=== PATIENT | female | born 1965 | race Caucasian/White ===

== ENCOUNTER → 2017-05-15 | Outpatient (CLI) | payer OTHER ==
--- NOTE | 2017-05-15 16:04 | RAD ---
Left lower extremity arterial duplex ultrasound 05/15/2017 Indication: Left lower extremity pain and bruising Comparison study: None Discussion: Ultrasound evaluation of left lower extremity arteries was performed including color Doppler imaging and spectral analysis. Normal waveforms are seen throughout the left lower extremity. Major arteries of the left lower extremity including the left common femoral, superficial femoral, popliteal, posterior tibial, and anterior tibial arteries appear grossly patent. No focal elevation in velocities suggestive of hemodynamically significant stenosis is appreciated. No other focal sonographic abnormality is appreciated. Impression: No sonographic evidence of hemodynamically significant stenosis involving major arteries of the left lower extremity
== END | disposition home or self-care (01) ==
LOC: US 14:47
PROVIDERS: ATTEND Family Medicine
DX: S80.12XA Contusion of left lower leg, initial encounter (principal); X58.XXXA Exposure to other specified factors, initial encounter; Y93.89 Activity, other specified; Y92.89 Other specified places as the place of occurrence of the external cause; Y99.8 Other external cause status
CPT/HCPCS: 93922

== ENCOUNTER 2017-11-29 10:45 | Emergency (ER) | payer OTHER ==
[2017-11-29] MEDS ORDERED: 0.9 % SODIUM CHLORIDE 10 ML DISP.SYRIN. IV (11:00)
[2017-11-29] MEDS: IV NORMAL SALINE 1000ML BAG 1,000 ML IV (11:08)
[2017-11-29] MEDS: DEXAMETHASONE SOD PHOS 20 MG/5 ML VIAL. IV (11:08)
[2017-11-29] MEDS: ACETAMINOPHEN 500 MG TABLET PO (11:08)
[2017-11-29] MEDS: PROCHLORPERAZINE 10 MG/2 ML VIAL. IV (11:09)
[2017-11-29] MEDS: KETOROLAC 30 MG/ML INJ. IV (11:09)
[2017-11-29] MEDS: diphenhydrAMINE 50 MG/ML VIAL IVP (11:09)
== END 2017-11-29 13:22 | disposition home or self-care (01) ==
LOC: ER 10:45
DX: G43.909 Migraine, unspecified, not intractable, without status migrainosus (principal); Z90.710 Acquired absence of both cervix and uterus; Z79.899 Other long term (current) drug therapy
CPT/HCPCS: 70450; 96361; 96374; 96375; 99285-25; J0780; J1100; J1200; J1885; J7030

== ENCOUNTER → 2018-02-22 | Outpatient (CLI) | payer OTHER | END | disposition home or self-care (01) | LOC: KCIC MRI 07:55 | DX: S46.011A Strain of muscle(s) and tendon(s) of the rotator cuff of right shoulder, initial encounter (principal); X58.XXXA Exposure to other specified factors, initial encounter; Y93.89 Activity, other specified; Y92.89 Other specified places as the place of occurrence of the external cause; Y99.8 Other external cause status | CPT/HCPCS: 73221 ==

== ENCOUNTER → 2018-07-18 | Outpatient (CLI) | payer OTHER ==
[2017-11-29 12:35] VITALS: BP 84/48
[~2018-07-18] MED LIST: ACET325T9 PO; NAPR-683 PO; PROC10TA57 PO
--- NOTE | 2018-07-18 17:25 | RAD ---
Ankle brachial indices HISTORY: Right lower leg lateral pain. No known injury. FINDINGS: Right SUZY equals 1.1 Left SUZY equals 1.1 Triphasic waveforms are identified in the dorsalis pedis arteries bilaterally. IMPRESSION: ABIs are within normal limits. Electronically signed by: Sergey Pavon MD (07/18/2018 5:22 PM) [id number]
--- NOTE | 2018-07-18 17:26 | RAD ---
Right lower extremity venous doppler ultrasound Indication:RT LOWER LEG LAT PAIN, NO KNOWN INJURY Technique: Color Doppler, grayscale, and spectral waveform analysis is used to evaluate the right femoral and popliteal veins. Findings: No evidence of deep venous thrombosis. Normal response to augmentation, normal compressibility and normal phasicity is demonstrated. Visualized calf veins are patent. Impression: Negative for deep venous thrombosis Electronically signed by: Sergey Pavon MD (07/18/2018 5:24 PM) [id number]
== END | disposition home or self-care (01) ==
LOC: US 09:45
PROVIDERS: ATTEND Family Medicine
DX: M79.604 Pain in right leg (principal)
CPT/HCPCS: 93922; 93971

== ENCOUNTER → 2018-07-25 | Outpatient (CLI) | payer OTHER ==
[2017-11-29 12:35] VITALS: BP 84/48
--- NOTE | 2018-07-26 08:26 | RAD ---
DATE: 07/25/2018 EXAM: MAMMO LIBERTDA SCREENING BILATERAL HISTORY: Routine screening COMPARISON: 10/28/2009 This study was interpreted with the benefit of Computerized Aided Detection (CAD). Breast Density: SCATTERED The breast parenchyma shows scattered fibroglandular densities. Breast parenchyma level B. FINDINGS: 2-D and 3-D tomosynthesis imaging was performed in CC and MLO projections. No new or enlarging breast densities are seen. No suspicious microcalcifications are evident. IMPRESSION: There is no mammographic evidence of malignancy in either breast. BI-RADS CATEGORY: 2 BENIGN FINDING(S) RECOMMENDED FOLLOW-UP: 12M 12 MONTH FOLLOW-UP PQRS compliance statement: Patient information was entered into a reminder system with a target due date for the next mammogram. Mammography is a sensitive method for finding small breast cancers, but it does not detect them all and is not a substitute for careful clinical examination. A negative mammogram does not negate a clinically suspicious finding and should not result in delay in biopsying a clinically suspicious abnormality. "Our facility is accredited by the [employer] Mammography Program."
== END | disposition home or self-care (01) ==
LOC: MAMMO 07:41
PROVIDERS: ATTEND Family Medicine
DX: Z12.31 Encounter for screening mammogram for malignant neoplasm of breast (principal)
CPT/HCPCS: 77063; 77067

== ENCOUNTER → 2018-09-27 | Outpatient (CLI) | payer OTHER ==
[2017-11-29 12:35] VITALS: BP 84/48
[~2018-09-27] MED LIST changes: +CONTRAST GIVEN. MC PRN; +GADOBUTROL 7.5 MMOL/7.5 ML VIAL INT ART ONE; +IOHEXOL 300 MG/ML 50 ML VIAL. IJ ONE; +LIDOCAINE 1% Multi-Dose 20 ML VIAL. INJ ONE; +LIDOCAINE WITH 8.4% SOD BICARB 3 ML DISP.SYRIN. INJ ONE
--- NOTE | 2018-09-27 13:16 | RAD ---
MR arthrogram of the left shoulder Indication: Pain, worsening over several months. Technique: Intra-articular contrast injected into the glenohumeral joint and is reported separately. Routine 4 plane sequences were obtained, including ABER positioning. FINDINGS: Artifact: Mild motion degradation. Acromioclavicular joint: Mildly degenerative, small undersurface osteophytes with mass effect. Rotator cuff: * Supraspinatus-infraspinatus tendon: No evidence of tear or rupture. * Subscapularis tendon: Intrasubstance signal likely due to the injection procedure. No high-grade tear or detachment. * Muscle bulk: Mild volume loss. * Subacromial subdeltoid bursa: No significant fluid or contrast accumulation. Articular cartilage: No acute cartilage defect or advanced DJD. Labrum: Tear of the superior labrum. Biceps tendon: Intact Bones: No lesion or acute fracture. Soft tissue: No acute findings. Impression: 1. Superior labral tear. 2. Signal within the subscapularis tendon, likely due to the injection procedure. No definite rotator cuff tear. Electronically signed by: Sergey Pavon MD (09/27/2018 1:12 PM) [id number]
--- NOTE | 2018-09-27 16:31 | RAD ---
EXAM: Left glenohumeral injection WITH Fluoroscopic guidance DATE: 09/27/2018 7:59 AM CLINICAL HISTORY: left shoulder weakness COMPARISON: None pertinent TECHNIQUE: The patient was informed of the indications and alternatives for this procedure as well as risks and benefits. No immediate contraindication identified. The patient provided informed, written consent. Laterality was confirmed by the entire team following a time out. Following initial left shoulder joint localization, a suitable area was sterilely prepped and draped. Local anesthesia was administered with 1% xylocaine. With intermittent fluoroscopic observation, a 22-gauge spinal needle was advanced into the left glenohumeral joint sheath/capsule with confirmation of intra-synovial position with infusion of less than 1 cc iodinated contrast. Subsequent infusion of 12 cc of solution containing 10 cc saline, 5 cc lidocaine 1%, 5 cc Isovue and 0.1 cc gadolinium . Hemostasis with local pressure. Local clinical exam negative for immediate complication. Patient informed re local potential signs or symptoms that may indicate need to return to ER/Ordering physician for further evaluation. Patient informed re precautionary measures after intra-synovial injection of anesthetic. Patient expressed understanding. Performing Physicians: Dr. Osiris Bose Blood Loss: 0 cc Total Fluoroscopy time: 0.2 minutes Total spot images taken: 0 Total number of fluoroscopic screen save images: 2 IMPRESSION: Successful intra-synovial injection left glenohumeral [id number] arthrogram per clinical request. Electronically signed by: Hermilo Bose MD (09/27/2018 4:27 PM) [facility]
== END | disposition home or self-care (01) ==
LOC: RAD 07:44
PROVIDERS: ATTEND Family Medicine
DX: S43.492A Other sprain of left shoulder joint, initial encounter (principal); X58.XXXA Exposure to other specified factors, initial encounter; Y93.89 Activity, other specified; Y92.89 Other specified places as the place of occurrence of the external cause; Y99.8 Other external cause status
CPT/HCPCS: 23350; 73040; 73222; A9585; Q9967

== ENCOUNTER → 2018-10-11 | Day surgery (SDC) | payer OTHER ==
[~2018-10-11] MED LIST changes: -CONTRAST GIVEN. MC PRN; +DOCU-109 PO; -GADOBUTROL 7.5 MMOL/7.5 ML VIAL INT ART ONE; +HYDROmorphone 2 MG/ML VIAL IV PRN; -IOHEXOL 300 MG/ML 50 ML VIAL. IJ ONE; +IV RINGERS,LACTATED 1000ML 1,000 ML IV SCH; -LIDOCAINE 1% Multi-Dose 20 ML VIAL. INJ ONE; +LIDOCAINE 1% PF 2 ML VIAL. ID PRN; -LIDOCAINE WITH 8.4% SOD BICARB 3 ML DISP.SYRIN. INJ ONE; +MORPHINE SULFATE 4 MG/ML VIAL. IV PRN; +OMEP20TA8 PO; +ONDA8TAB9 PO; +ONDANSETRON PF 4 MG/2 ML VIAL. IV PRN; +OXYC1TAB15 PO; +PROCHLORPERAZINE 10 MG/2 ML VIAL. IV PRN; +PROG200C10 PO; +PROPOFOL 40 ML IV ONE; +TOPI100T42 PO; +fentaNYL PF VIAL 100 MCG/2 ML VIAL IV PRN
[2018-10-11 09:29] VITALS: BP 122/63
--- NOTE | 2018-10-11 10:38 | CONS ---
DATE OF CONSULTATION: 10/11/2018 REFERRING PHYSICIAN: Chanell Murray MD. REASON: Colorectal screening. HISTORY OF PRESENT ILLNESS: A 53-year-old female with past medical history significant for osteoarthrosis, gastroesophageal reflux disease, seen for a screening colon exam. Bowel habits are regular without diarrhea or constipation. There has been no melena or hematochezia. Weight and appetite are stable. She has not undergone previous screening studies. PAST MEDICAL HISTORY: GERD, osteoarthritis. ALLERGIES: None. MEDICATIONS: Include Tylenol, Naprosyn, omeprazole, progesterone and Topamax. FAMILY AND SOCIAL HISTORY: Significant for diabetes with her grandmother, pancreatic cancer with grandfather, myocardial infarction with her father. Social drinker, nonsmoker. PAST SURGICAL HISTORY: Hysterectomy and tonsillectomy. REVIEW OF SYSTEMS: Per records. PHYSICAL EXAMINATION: GENERAL: Reveals a well-nourished, well-developed female. VITAL SIGNS: Temperature is 98.1, pulse 78, respirations 20. HEENT: Normocephalic and atraumatic. Pupils and extraocular muscles not tested. Sclerae anicteric. NECK: Supple. LUNGS: Clear. CARDIOVASCULAR: Reveals an S1, S2 without S3, S4 or appreciable murmur. ABDOMEN: Reveals soft abdomen, normal bowel sounds without appreciable hepatosplenomegaly. EXTREMITIES: Reveal no cyanosis, clubbing or edema. IMPRESSION: Colorectal screening was recommended at this time. Risks and benefits of procedure including risk of hemorrhage and perforation during the operation have been discussed. The patient is willing to proceed. KORINA REYES MD DR: FRANDY/joy JOB#: [id number] / [id number] [facility] RECORDS, MEDICAL
== END | disposition home or self-care (01) ==
LOC: SURG 07:52
PROVIDERS: ATTEND Internal Medicine Gastroenterology
DX: Z12.11 Encounter for screening for malignant neoplasm of colon (principal); K64.0 First degree hemorrhoids; K21.9 Gastro-esophageal reflux disease without esophagitis; G43.909 Migraine, unspecified, not intractable, without status migrainosus; M19.90 Unspecified osteoarthritis, unspecified site; Z79.899 Other long term (current) drug therapy; Z72.89 Other problems related to lifestyle; Z90.710 Acquired absence of both cervix and uterus; Z98.890 Other specified postprocedural states; Z82.49 Family history of ischemic heart disease and other diseases of the circulatory system; G89.29 Other chronic pain
CPT/HCPCS: 45378; J2704

== ENCOUNTER 2018-10-16 07:54 | Day surgery (SDC) | payer OTHER ==
[~2018-10-16] VITALS: Ht 170.2 cm; Wt 83.9 kg
[~2018-10-16 07:54] MED LIST changes: +DEXAMETHASONE SOD PHOS 20 MG/5 ML VIAL. ONE; -DOCU-109 PO; +LIDOCAINE 2% PF Vial for OR 5 ML VIAL. ONE; +MORPHINE SULFATE 2 MG/ML VIAL. IV PRN; -MORPHINE SULFATE 4 MG/ML VIAL. IV PRN; -ONDA8TAB9 PO; -OXYC1TAB15 PO; -PROG200C10 PO; +PROG200C2 PO; +PROPOFOL 20 ML IV ONE; -PROPOFOL 40 ML IV ONE
--- NOTE | 2018-10-16 08:40 | DISCH ---
DISCHARGE INSTRUCTIONS Condition on Discharge Condition on Discharge: Stable Activity After Discharge Activity Instructions for Disc: Other, see below Other activity instructions: arm to remain in sling Bathing Instructions: Shower-keep dressing dry Weight Bearing Status after Di: Non weight bearing Diet after Discharge Diet after Discharge: Regular Wound Incision Care Wound/Incision Care: Ice to area for comfort, Keep wound/cast CDI, Change dressing Other wound/incision instructi: ok to change dressing after [address] after DC Call your doctor for: Concerns you may have Follow-Up Follow up with: Carlos in 2 wks DARCY ALEJANDRA II, MD Oct 16, 2018 08:39
[2018-10-16] MEDS ORDERED: BUPIVACAINE MPF 0.25% 10 ML VIAL. ONE (10:23)
[2018-10-16] MEDS ORDERED: MIDAZOLAM HCL/PF 2 MG/2 ML VIAL. ONE (10:23)
[2018-10-16] MEDS ORDERED: LIDOCAINE 2% PF 2ML VIAL. ONE (10:23)
[2018-10-16] MEDS ORDERED: ROPIVacaine 0.5% PF 20 ML VIAL. ONE (10:23)
[2018-10-16] MEDS ORDERED: EPINEPHrine 1 MG/ML VIAL ONE (10:23)
[2018-10-16] MEDS ORDERED: LIDOCAINE 1% 20 ML VIAL. ONE (10:30)
[2018-10-16] MEDS ORDERED: BUPIVACAINE MPF 0.5% 30 ML VIAL. ONE (10:31)
[2018-10-16] MEDS ORDERED: EPINEPHrine VIAL 30 MG/30 ML VIAL ONE (10:31)
[2018-10-16] MEDS ORDERED: fentaNYL PF VIAL 100 MCG/2 ML VIAL ONE (11:09)
[2018-10-16] MEDS ORDERED: ROCURONIUM 50 MG/5 ML VIAL. ONE (11:09)
[2018-10-16] MEDS ORDERED: GLYCOPYRROLATE 1 MG/5 ML VIAL. ONE (12:16)
[2018-10-16] MEDS ORDERED: NEOSTIGMINE 10 MG/10 ML VIAL. ONE (12:16)
--- NOTE | 2018-10-16 12:54 | PDOC4 ---
Operative Note Operative Note Date of procedure: 10/16/2018 Surgeon: Mark Alejandra Interviewing Clerk: Aida Mancuso, certified tower climber Preoperative diagnosis: Right shoulder rotator cuff tear Postoperative diagnosis: #1 right shoulder rotator cuff tear, supraspinatus #2 superior labral tear right shoulder Procedure performed: #1 arthroscopic right shoulder rotator cuff repair #2 arthroscopic superior labral repair of right shoulder #3 open subpectoral biceps tenodesis on right side Anesthesia: Gen. plus regional nerve block Findings: #1 intact cartilage at the glenoid and humeral head #2 biceps tendon without obvious pathology #3 superior labral tear #4 remainder of labrum intact #5 high-grade partial thickness tear at supraspinatus #6 remainder rotator cuff intact #7 no loose bodies Blood loss: 10 mL Components inserted: 1.9 mm suture fix anchor for biceps tenodesis, 2 1.7 mm suture fix anchors for labral fixation, helacoil suture anchor for rotator cuff Reason for procedure: Patient is a very pleasant and active woman who has had chronic shoulder pain. Clinical and radiographic examination including MRI were consistent with the preoperative diagnosis. She has tried physical therapy for several months as well as injections which only afforded her temporary relief. Because of her symptoms and dysfunction, we had a discussion of the risks, benefits, alternatives the above surgery and she wished to proceed. Description of procedure: Patient was greeted in the preoperative holding area where the correct extremity was verified and marked. There were taken to the preoperative holding area where the anesthesiology team placed a regional nerve block. The patient was then taken back to the operative suite and antibiotics were started as they were brought back. Once in the operative room, the patient was transferred gently supine to the operating room table after successful induction of a general anesthetic. After this, she was sat up in a beachchair position maintaining her C-spine in neutral position, large pad under her legs, she was secured to the bed. We then prepped and draped in her upper extremity and shoulder girdle in our usual sterile fashion, we conducted our standard preoperative timeout. I palpated and marked surface anatomy for my planned portal sites. I then used a spinal needle to localize a posterior superior portal and incised skin in accordance with this. After this, I introduce the blunt arthroscopic trocar into the glenohumeral joint ball by the camera. I used a spinal needle to localize an anterosuperior portal and incised skin in accordance with this. I introduced my arthroscopic probe and conducted my diagnostic arthroscopy with the above-noted findings. I then elected to create an anteroinferior portal under spinal localization for suture management. After this, I removed all arthroscopic instrumentation. I then palpated and marked her surface anatomy for my subpectoral incision. I incised skin with a scalpel and dissected subcutaneous tissue until I encountered fascia I bluntly dissected underneath the pectoralis major and deltoid. I palpated and identified the biceps tendon. After this, I placed a 90 retractor over the top of her humerus. An [place] was used inferiorly. I identified an isolated biceps tendon and clamped it with a hemostat. Distal to this along the course of the tendon, I placed my large suture fix anchor and shuttled these 2 limbs through in a lasso configuration using a [place]. I then tied them down securely. I then used a scalpel to cut the tendon between the hemostat and suture knots. After this, I repositioned the arm and introduced my camera into the glenohumeral joint again. I then used the shaver to debride the superior glenoid in anticipation of my suture anchor placement and labral repair. I then placed the 2 suture fix anchors, 100 time and shuttled the limbs through in a simple configuration with a spectrum and tied it down with arthroscopic knot- tying techniques. The suture limbs were cut. After placing my second one, I tested the repair integrity, it was solid. I then released the biceps tendon and withdrew it from the subpectoral incision easily. I then removed a small remaining portion of the biceps stump with the shaver. I then performed repeated aspiration maneuvers with my shaver while in the glenohumeral joint to remove any loose debris. I then passed a PDS suture through with a spinal needle , at the frayed edge of the supra spinatus. I then removed all arthroscopic interpretation from the glenohumeral joint and repositioned in the subacromial space. His combination of shaver and electrocautery device to perform a bursectomy. Identified the PDS suture and was easily able to violate the substance of the tendon with the shaver tip. I therefore took down the pathologic tendon and prepared my footprint. After removing all damaged tissue, he created a full-thickness defect. I then used a switching stick through a lateral portal I created to place a cannula to work through. I then placed my suture anchor. After this, shuttled the suture limbs through the anterosuperior portal for suture management. I then shuttled them in a simple configuration through the rotator cuff tendon and tied them down with arthroscopic knot-tying techniques for a secure repair. No motion was noted at the bone tendon interface with motion at her arm. The repair was stable to probing. I then removed all excess arthroscopic fluid and the arthroscopic interpretation from her subacromial space. The portals were closed with simple interrupted 3-0 nylon. Subcutaneous cutaneous tissue was closed with inverted interrupted 2-0 Vicryl at the subpectoral incision followed by running 4-0 Monocryl in a buried subcuticular fashion. The shoulder with close cleansed and dried and a sterile bulky dressing was applied. Her arm was then placed into an abduction pillow sling. All counts correct 2 prior to wound closure. No complications. At the conclusion, she was laid supine and transferred gently supine to the recovery room cart and taken to the PACU stable and extubated condition. Postoperative plan is to remain in the sling, shell be nonweightbearing. Ill see her back in 2 weeks, sooner should a problem arise. She will be discharged home today. MARK ALEJANDRA II, MD Oct 16, 2018 12:54
[2018-10-16] MEDS: fentaNYL PF VIAL 100 MCG/2 ML VIAL IV PRN ×2 (13:06→13:16)
[2018-10-16] MEDS ORDERED: OXYC1TAB15 PO (13:13)
[2018-10-16] MEDS ORDERED: DOCU-109 PO (13:14)
[2018-10-16] MEDS ORDERED: ONDA8TAB9 PO (13:14)
[2018-10-16] MEDS ORDERED: oxyCODONE/APAP 5/325 1 TAB TABLET PO ONE (13:15)
[2018-10-16] MEDS ORDERED: MORPHINE SULFATE 4 MG/ML VIAL. ONE (13:36)
[2018-10-16 14:37] VITALS: BP 121/64
== END 2018-10-16 14:37 | disposition home or self-care (01) ==
LOC: SURG 07:54
PROVIDERS: ATTEND Orthopaedic Surgery Sports Medicine
DX: M75.111 Incomplete rotator cuff tear or rupture of right shoulder, not specified as traumatic (principal); E78.5 Hyperlipidemia, unspecified; E78.00 Pure hypercholesterolemia, unspecified; K21.9 Gastro-esophageal reflux disease without esophagitis; G43.909 Migraine, unspecified, not intractable, without status migrainosus; Z98.890 Other specified postprocedural states; Z90.710 Acquired absence of both cervix and uterus; Z79.899 Other long term (current) drug therapy; Z82.49 Family history of ischemic heart disease and other diseases of the circulatory system; Z87.891 Personal history of nicotine dependence
CPT/HCPCS: 23430; 29807; 29827; A7015; C1782; J0171; J0696; J0780; J1100; J2001; J2250; J2270; J2704; J2710; J2795; J3010; J3490

== ENCOUNTER 2018-12-23 07:48 | Day surgery (SDC) | payer OTHER ==
[~2018-12-23 07:48] MED LIST changes: +BUPIVAC MPF-EPI 0.5%-1:200000 30 ML VIAL. ONE; +BUPIVACAINE MPF 0.5% 30 ML VIAL. ONE; -DEXAMETHASONE SOD PHOS 20 MG/5 ML VIAL. ONE; +DOCU-109 PO; +LIDOCAINE 1% PF 2 ML VIAL. ONE; -LIDOCAINE 2% PF Vial for OR 5 ML VIAL. ONE; +ONDA8TAB9 PO; +OXYC1TAB15 PO; -PROPOFOL 20 ML IV ONE
[2018-12-23] MEDS ORDERED: MIDAZOLAM HCL/PF 2 MG/2 ML VIAL. ONE (08:38)
--- NOTE | 2018-12-23 08:47 | DISCH ---
DISCHARGE INSTRUCTIONS Condition on Discharge Condition on Discharge: Stable Activity After Discharge Activity Instructions for Disc: Activity as tolerated, Other, see below Bathing Instructions: Shower-keep dressing dry Weight Bearing Status after Di: As tolerated, Non weight bearing Diet after Discharge Diet after Discharge: Regular Wound Incision Care Wound/Incision Care: Ice to area for comfort, Keep wound/cast CDI, Change dressing Contacting the DRPolina after DC Call your doctor for: Concerns you may have Follow-Up Follow up with: Carlos in 2 wks Follow Up With: PT this DARCY Velázquez II, MD Dec 23, 2018 08:47
--- NOTE | 2018-12-23 09:22 | PDOC4 ---
Operative Note Operative Note Date of Procedure: 12/23/18 Surgeon: Mark Alejandra Pre-operative Diagnosis: Right shoulder postoperative arthrofibrosis Postoperative diagnosis: Same Procedure performed: Right shoulder manipulation under anesthesia Anesthesia: Regional nerve block with propofol for sedation monitored by anesthesiologist. Blood loss: 0 Complications: Findings: Preprocedure forward elevation was to 80, external rotation was to 10 , abduction was to 70 Reason for procedure: Patient is a pleasant 53-year-old female who underwent right shoulder arthroscopic rotator cuff repair with myself several weeks ago. She had plateaued and failed to gain any motion with physical therapy and felt her shoulder was becoming more stiff. Therefore, we had a discussion of the risks, benefits, and alternatives to the above procedure and she wished to proceed. Description of procedure: Patient was greeted in the preoperative area by myself for the correct extremity was verified and marked. She underwent placement of a regional nerve block by the anesthesiologist. After allowing the block to set up, propofol sedation was begun and after adequate relaxation, I conducted my examination under anesthesia with the above-noted findings. I then performed my close manipulation of her shoulder in forward elevation and external rotation using a short lever arm, I perform this maneuver 3 times. A gratifying release and audible release of scar tissue was appreciated. After the manipulation, forward elevation was to 150 or 160, external rotation was to 30 and abduction was to 90. She tolerated this well. She was awakened from her sedation. Placed into a sling. She'll be discharged home today, she has physical therapy starting tomorrow. MARK ALEJANDRA II, MD Dec 23, 2018 09:22
[2018-12-23 10:30] VITALS: BP 107/58
== END 2018-12-23 10:41 | disposition home or self-care (01) ==
LOC: SURG 07:48
PROVIDERS: ATTEND Orthopaedic Surgery Sports Medicine
DX: M24.611 Ankylosis, right shoulder (principal); Z90.710 Acquired absence of both cervix and uterus; Z98.890 Other specified postprocedural states; Z82.49 Family history of ischemic heart disease and other diseases of the circulatory system; Z87.891 Personal history of nicotine dependence; Z72.89 Other problems related to lifestyle; Z79.899 Other long term (current) drug therapy
CPT/HCPCS: 23700; J2250; J3010; J3490

== ENCOUNTER → 2019-04-04 | Outpatient (CLI) | payer OTHER ==
[~2019-04-04] MED LIST changes: -BUPIVAC MPF-EPI 0.5%-1:200000 30 ML VIAL. ONE; -BUPIVACAINE MPF 0.5% 30 ML VIAL. ONE; -HYDROmorphone 2 MG/ML VIAL IV PRN; -IV RINGERS,LACTATED 1000ML 1,000 ML IV SCH; -LIDOCAINE 1% PF 2 ML VIAL. ID PRN; -LIDOCAINE 1% PF 2 ML VIAL. ONE; -MORPHINE SULFATE 2 MG/ML VIAL. IV PRN; -ONDANSETRON PF 4 MG/2 ML VIAL. IV PRN; -PROCHLORPERAZINE 10 MG/2 ML VIAL. IV PRN; -fentaNYL PF VIAL 100 MCG/2 ML VIAL IV PRN
--- NOTE | 2019-04-04 13:49 | CARD ---
MR#: [id number] Date of Study: 04/04/2019 Ordering Physician: ANTONIO WILSON, Referring Physician: ANTONIO WILSON, Tech: Katie Minor MANAS APPROVED REPORT EXAM: Two-dimensional and M-mode echocardiogram with Doppler and color Doppler. Other Information Quality : Good INDICATION Chest Pain 2D DIMENSIONS RVDd2.3 (2.9-3.5cm)Left Atrium(2D)2.9 (1.6-4.0cm) IVSd0.7 (0.7-1.1cm)Aortic Root(2D)2.2 (2.0-3.7cm) LVDd3.9 (3.9-5.9cm)LVOT Diameter2.0 (1.8-2.4cm) PWd0.7 (0.7-1.1cm)LVDs3.0 (2.5-4.0cm) FS (%) 12.9 %SV18.6 ml LVEF(%)55.0 (>50%) Aortic Valve AoV Peak Agustin.112.4cm/sAoV VTI25.3cm AO Peak GR.5.1mmHgLVOT Peak Agustin.111.7cm/s LVOT VTI 25.50cmAO Mean GR.3mmHg ISSA (VMAX)3.12mq6DKM (VTI)3.06cm2 Mitral Valve MV E Ihmoijnp27.0cm/sMV DECEL AEFR783xf MV A Ypkfpuyf82.4cm/sMV KNH93pa E/A Ratio1.8MVA (PHT)4.43cm2 TDI E/Lateral E'5.9E/Medial E'8.4 Tricuspid Valve TR P. Vfqdruqu883bn/sRAP QICPSMEA6dgSb TR Peak Gr.36kqVcVUMK80tuFl Pulmonary Vein S1 Qqnzgnqf54.5cm/sD2 Juvbuspc42.3cm/s LEFT VENTRICLE The left ventricle is normal size. There is normal left ventricular wall thickness. The left ventricu lar systolic function is normal and the ejection fraction is within normal range. The Ejection Fracti on is 55-60%. There is normal LV segmental wall motion. The left ventricular diastolic function and f illing is normal for age. RIGHT VENTRICLE The right ventricle is normal size. The right ventricular systolic function is normal. ATRIA The left atrium size is normal. The right atrium size is normal. The interatrial septum is intact wit h no evidence for an atrial septal defect or patent foramen ovale as noted on 2-D or Doppler imaging. AORTIC VALVE The aortic valve is normal in structure and function. Doppler and Color Flow revealed no significant aortic regurgitation. There is no significant aortic valvular stenosis. MITRAL VALVE The mitral valve is normal in structure and function. There is no evidence of mitral valve prolapse. There is no mitral valve stenosis. Doppler and Color-flow revealed trace mitral regurgitation. TRICUSPID VALVE The tricuspid valve is normal in structure and function. Doppler and Color Flow revealed physiologica l tricuspid regurgitation. The PA pressure was estimated at 18 mmHg. There is no tricuspid valve sten osis. PULMONIC VALVE Doppler and Color Flow revealed no pulmonic valvular regurgitation. There is no pulmonic valvular yusuf nosis. GREAT VESSELS The aortic root is normal in size. The ascending aorta is normal in size. The IVC is normal in size a nd collapses >50% with inspiration. PERICARDIAL EFFUSION There is no evidence of significant pericardial effusion. Critical Notification Critical Value: No <Conclusion> The left ventricular systolic function is normal and the ejection fraction is within normal range. Th e Ejection Fraction is 55-60%. There is normal LV segmental wall motion. Signed by : Antonio Wilson, Electronically Approved : 04/04/2019 13:49:09
[2019-04-04 15:34] LABS: CHOLESTEROL/HDL RATIO 3.8
== END | disposition home or self-care (01) ==
LOC: ECHO 12:25
PROVIDERS: ATTEND Internal Medicine Cardiovascular Disease
DX: I07.1 Rheumatic tricuspid insufficiency (principal)
CPT/HCPCS: 36415; 80061; 83721; 84484; 93306

== ENCOUNTER 2019-06-11 21:35 | Emergency (ER) | payer OTHER ==
[~2019-06-11] VITALS: Ht 172.7 cm; Wt 83.0 kg
[~2019-06-11 21:35] MED LIST changes: +PROG200C10 PO; -PROG200C2 PO
--- NOTE | 2019-06-11 21:55 | PHYS DOC ---
Past Medical History Past Medical History: Migraines (PACHECO TOMLIN) Past Surgical History: Hysterectomy, Other Additional Past Surgical Histo: KNEE SX, JAW SX (PACHECO TOMLIN) Alcohol Use: None Drug Use: None (PACHECO TOMLIN) Adult General Chief Complaint Chief Complaint: WRIST PAIN HPI HPI Patient is a 54 year old female presents to the ED complaining of right wrist injury times one hour ago. Patient states that she was wearing heels in the house and slipped in water and landed on her right wrist. Describes the pain as sharp. Rates the pain as 7 out of 10. Denies head/neck injury, LOC, vision changes, weakness, symptoms prior to fall, use of blood thinners, chest pain, shortness of breath, arm pain, weakness, dizziness. (PACHECO TOMLIN) Review of Systems Review of Systems Constitutional: Denies fever or chills [] Eyes: Denies change in visual acuity, redness, or eye pain [] HENT: Denies nasal congestion or sore throat [] Respiratory: Denies cough or shortness of breath [] Cardiovascular: No additional information not addressed in HPI [] GI: Denies abdominal pain, nausea, vomiting, bloody stools or diarrhea [] : Denies dysuria or hematuria [] Musculoskeletal:Complains of wrist pain. Denies back pain. [] Integument: Denies rash or skin lesions [] Neurologic: Denies headache, focal weakness or sensory changes [] All other systems were reviewed and found to be within normal limits, except as documented in this note. (PACHECO TOMLIN) Current Medications Current Medications Current Medications Medications (Trade) Dose Ordered Sig/[facility] Start Time Stop Time Status Last Admin Dose Admin Acetaminophen/ Hydrocodone Bitart (Lortab 5/325) 1 tab 1X ONCE 06/12/19 01:00 06/12/19 01:01 DC 06/12/19 01:11 1 TAB Etomidate (Amidate) 10 mg 1X ONCE 06/11/19 22:15 06/11/19 22:26 DC 06/12/19 01:11 10 MG Fentanyl Citrate (Fentanyl 2ml Vial) 100 mcg 1X ONCE 06/11/19 22:30 06/11/19 22:31 DC 06/12/19 01:11 100 MCG Ondansetron HCl (Zofran) 4 mg 1X ONCE 06/12/19 00:30 06/12/19 00:34 DC 06/12/19 00:54 4 MG Sodium Chloride 1,000 ml @ 1,000 mls/hr 1X ONCE 06/11/19 22:15 06/11/19 23:14 DC 06/12/19 01:11 1,000 MLS/HR (GRUPO MEJIA DO) Allergies Allergies Allergies Coded Allergies Type Severity Reaction Last Updated Verified No Known Drug Allergies 12/18/18 No (GRUPO MEJIA DO) Physical Exam Physical Exam Constitutional: Well developed, well nourished, no acute distress, non-toxic appearance. [] HENT: Normocephalic, atraumatic [] Skin: Warm, dry, no erythema, no rash. [] Back: No tenderness, no CVA tenderness. [] Extremities: Moderate right wrist tenderness and swelling with deformity. no cyanosis, no clubbing, no edema. 2+ distal pulses.[] Neurologic: Alert and oriented X 3, normal motor function, normal sensory function, no focal deficits noted. [] Psychologic: Affect normal, judgement normal, mood normal. [] (PACHECO TOMLIN) Physical Exam Constitutional: Well developed, well nourished, uncomfortable, in pain, non- toxic appearance HENT: Normocephalic, atraumatic, oropharynx moist, normal anatomy Eyes: Conjunctiva normal, no discharge Neck: Normal range of motion, no tenderness, supple Cardiovascular: Heart rate normal, regular rhythm Lungs & Thorax: Bilateral breath sounds clear to auscultation, no wheezing Skin: Warm, dry, no erythema, no rash Extremities: Obvious deformity of right wrist, Radial pulse +2 Neurologic: Alert and oriented X 3, normal motor function, normal sensory function, no focal deficits noted Psychologic: Affect normal, judgement normal (GRUPO MEJIA DO) Current Patient Data Vital Signs Vital Signs Date Time Temp Pulse Resp B/P (MAP) Pulse Ox O2 Delivery O2 Flow Rate FiO2 06/12/19 01:11 18 99 Room Air 06/11/19 21:45 98.4 82 120/57 (78) 98.4 (GRUPO MEJIA DO) EKG EKG [] (PACHECO TOMLIN) Radiology/Procedures Radiology/Procedures []Distal radius fracture. Film read by Dr. Mejia. (PACHECO TOMLIN) Radiology/Procedures Right wrist 3V (preliminary interpretation by ED physician): Distal radius and ulna fractures Right forearm 2V (preliminary interpretation by ED physician): Improved alignment of fracture/dislocation (GRUPO MEJIA DO) Course & Med Decision Making Course & Med Decision Making Pertinent Labs and Imaging studies reviewed. (See chart for details) []Patient had distal radius fracture on XR. Reduction performed by Dr. Mejia under conscious sedation. Postreduction film taken. Reduction successful. No complications. See Dr. Mejia note for procedure. Patient placed in splint. NV intact post placement. Patient to follow up with orthopedics this week. Provided contact information/education. Discussed reasons to return to the ED. Patient is understands and agrees with plan. (PACHECO TOMLIN) Course & Med Decision Making Patient with distal wrist fracture s/p fall. Moderate sedation with manipulation of wrist performed by myself with interval improved alignment. Splint applied. Repeat XR confirmed improved alignment. Patient stable for discharge with outpatient follow-up with PCP/orthopedics. Orthopedic referral provided. Discussed findings and plan with patient and family, who acknowledge understanding and agreement. (GRUPO MEJIA DO) Dragon Disclaimer Dragon Disclaimer This electronic medical record was generated, in whole or in part, using a voice recognition dictation system. (PACHECO TOMLIN) Splinting Splinting : Location: Right wrist Hand-Made Type: orthoglass Splint: sugar-tong Pre-Proc Neuro Vasc Exam: normal Post-Proc Neuro Vasc Exam: normal, unchanged from pre-exam (GRUPO MEJIA DO) Additional Procedures Progress Moderate sedation with fracture reduction: Written consent obtained. Time out performed. Hand hygiene utilized. Cardiac, pulse oximetry, and ETCO2 monitors applied. Supplemental O2 provided at 2L NC. IVF bolus initiated. Sedation achieved with 100mcg of Fentanyl and 10mg of Etomidate (Etomidate pushed by myself). Manipulation performed to right wrist with improved alignment of fracture. Splint applied. Patient more alert during splint application and complains of pain. Additional 50mcg of Fentanyl provided. Patient tolerated procedure well and without difficulty. Sling applied after repeat XR. (GRUPO MEJIA DO) Departure Departure Impression: Primary Impression: Wrist fracture Disposition: 01 HOME, SELF-CARE Condition: IMPROVED Referrals: GRUPO CORCORAN MD (PCP) RAHUL FREGOSO MD Patient Instructions: Sedation or General Anesthesia, Adult, Care After, Sedation, Moderate, Adult, Wrist Fracture Scripts Ondansetron Hcl (ZOFRAN) 4 Mg Tablet 1 TAB PO Q6HRS, #20 TAB Prov: PACHECO TOMLIN 06/12/19 Hydrocodone/Apap 5-325 (NORCO 5-325 TABLET) 1 Each Tablet 1 TAB PO BID for 6 Days, #12 TAB Prov: PACHECO TOMLIN 06/12/19 MODERATE SEDATION ASSESSMENT* RISKS/ALTERNATIVES Risks/Alternatives Risks and alternatives of this type of sedation and procedure discussed with: RISK/ALTERNATIVES: Patient (GRUPO MEJIA DO) H & P ON CHART H & P H & P on chart and reviewed for co-morbid conditions and appropriate labs. H&P ON CHART: Yes (GRUPO MEJIA DO) STATUS PREG STATUS ASSESSED: N/A (GRUPO MEJIA DO) MEDS/ALLERGIES REVIEWED Meds/Allergies Reviewed Medications and Allergies including time and route of recently administered narcotics and sedatives. MEDS/ALLERGIES REVIEWED: Yes (GRUPO MEJIA DO) ASA RATING ASA RATING: I (GRUPO MEJIA DO) AIRWAY ASSESSMENT Airway Assessment Airway patency, oral function limitations, presence of caps, crowns, dentures, partials, and ability to extend neck assessed. AIRWAY ASSESSMENT: Yes (GRUPO MEJIA DO) MALLAMPATI SCORE MALLAMPATI SCORE: II (GRUPO MEJIA DO) PRE-SEDATION ASSESSMENT PRE-SEDATION ASSESSMENT: Yes (GRUPO MEJIA DO) Attending Signature Attending Signature I have personally interviewed and examined the patient. All charts, labs, and imaging studies were reviewed. I agree with the PA/FAGOT HEATER's findings, exam, and plan. (GRUPO MEJIA DO) PACHECO TOMLIN Jun 11, 2019 21:55 GRUPO MEJIA DO Jun 12, 2019 02:09
[2019-06-11] MEDS ORDERED: ETOMIDATE 20 MG/10 ML VIAL. IV ONE (22:15)
[2019-06-11] MEDS ORDERED: IV NORMAL SALINE 1000ML BAG 1,000 ML IV ONE (22:15)
[2019-06-11] MEDS ORDERED: fentaNYL PF VIAL 100 MCG/2 ML VIAL IV ONE (22:30)
[2019-06-11 23:25] VITALS: BP 141/64
[2019-06-12] MEDS ORDERED: HYDR-3164 PO (00:17)
[2019-06-12] MEDS ORDERED: ONDA4TAB7 PO (00:18)
[2019-06-12] MEDS ORDERED: ONDANSETRON PF 4 MG/2 ML VIAL. IV ONE (00:30)
[2019-06-12] MEDS ORDERED: HYDROcodone/APAP 5/325MG 1 TAB TABLET PO ONE (01:00)
--- NOTE | 2019-06-12 02:49 | RAD ---
Right forearm AP lateral x-rays HISTORY: Right forearm injury. COMPARISON: Chest x-ray June 11, 2019. FINDINGS: Since prior wrist x-rays there has been splinting and closed reduction of the distal radius fracture with improved alignment of the fracture fragments with mild persistent cortical distraction of the metaphysis. Irregularity likely representing intra-articular extension of fracture of the dorsal radius on the lateral film noted. Ulna intact. No dislocation. IMPRESSION: Closed reduction of the distal radius fracture with improved alignment as described above. Electronically signed by: Raf Pink MD (06/12/2019 2:47 AM) [id number]
--- NOTE | 2019-06-12 08:17 | RAD ---
EXAM: 3 views right wrist DATE: 06/11/2019 9:29 PM INDICATION: Right wrist pain, injury COMPARISON: No Prior FINDINGS/ IMPRESSION: 1. PA, oblique and lateral views of the right wrist demonstrate a comminuted fracture of the distal radius with intra-articular extension. Corolla dorsal angulation with flattening of the inclination angle. Resultant ulnar positive variance. Moderate associated soft tissue swelling is seen. 2. Degenerative changes thumb CMC. Electronically signed by: Hermilo Bsoe MD (06/12/2019 8:14 AM) [facility]
== END 2019-06-12 00:40 | disposition home or self-care (01) ==
LOC: ER 21:35
DX: S52.571A Other intraarticular fracture of lower end of right radius, initial encounter for closed fracture (principal); G43.909 Migraine, unspecified, not intractable, without status migrainosus; Z90.710 Acquired absence of both cervix and uterus; W01.0XXA Fall on same level from slipping, tripping and stumbling without subsequent striking against object, initial encounter; Y93.89 Activity, other specified; Y92.000 Kitchen of unspecified non-institutional (private) residence as the place of occurrence of the external cause; Y99.8 Other external cause status
CPT/HCPCS: 25605; 73090; 73110; 96374; 99285; J2405; J3010; J7030

== ENCOUNTER 2019-06-18 06:08 | Day surgery (SDC) | payer OTHER ==
[~2019-06-18] VITALS: Ht 172.7 cm; Wt 83.0 kg
[~2019-06-18 06:08] MED LIST changes: +HYDR-2761 PO; +HYDR-3164 PO; +ONDA4TAB7 PO
[2019-06-18] MEDS ORDERED: PROPOFOL 20 ML IV ONE (06:25)
[2019-06-18] MEDS ORDERED: ONDANSETRON PF 4 MG/2 ML VIAL. ONE (06:26)
[2019-06-18] MEDS ORDERED: LIDOCAINE 2% PF 5 ML VIAL. ONE (06:26)
[2019-06-18] MEDS ORDERED: fentaNYL PF VIAL 100 MCG/2 ML VIAL ONE (06:26)
[2019-06-18] MEDS ORDERED: DEXAMETHASONE SOD PHOS 4 MG/ML VIAL ONE ×2 (06:26→07:28)
[2019-06-18] MEDS ORDERED: BUPIVACAINE MPF 0.5% 30 ML VIAL. ONE (06:55)
[2019-06-18] MEDS ORDERED: LIDOCAINE 1% PF 30 ML VIAL. ONE (06:55)
[2019-06-18] MEDS ORDERED: fentaNYL PF VIAL 100 MCG/2 ML VIAL IV PRN (07:00)
[2019-06-18] MEDS ORDERED: ONDANSETRON PF 4 MG/2 ML VIAL. IV PRN (07:00)
[2019-06-18] MEDS ORDERED: HYDROmorphone 2 MG/ML VIAL IV PRN (07:00)
[2019-06-18] MEDS ORDERED: PROCHLORPERAZINE 10 MG/2 ML VIAL. IV PRN (07:00)
[2019-06-18] MEDS ORDERED: IV RINGERS,LACTATED 1000ML 1,000 ML IV SCH (07:00)
[2019-06-18] MEDS ORDERED: LIDOCAINE 1% PF 2 ML VIAL. ID PRN (07:00)
--- NOTE | 2019-06-18 07:10 | DISCH ---
DISCHARGE INSTRUCTIONS Condition on Discharge Condition on Discharge: Stable Activity After Discharge Activity Instructions for Disc: Other, see below Bathing Instructions: Shower-keep dressing dry Weight Bearing Status after Di: Non weight bearing Diet after Discharge Diet after Discharge: Regular Wound Incision Care Wound/Incision Care: Ice to area for comfort, Keep wound/cast CDI, Change dressing, Do not change dressing Other wound/incision instructi: leave splint intact Contacting the DR. after DC Call your doctor for: Concerns you may have Follow-Up Follow up with: Carlos in 2 wks DARCY ALEJANDRA II, MD Jun 18, 2019 07:10
--- NOTE | 2019-06-18 07:14 | PDOC4 ---
Operative Note Operative Note Date of procedure: 06/18/2019 Surgeon: Mark Alonso.: Preoperative diagnosis: Closed, displaced and now angulated extra-articular right distal radius fracture Postoperative diagnosis: Same Procedure performed: Open reduction internal fixation extra-articular right distal radius fracture Anesthesia: Gen. Findings: Acute fracture Complications: none Tourniquet time: Blood loss: 5mL Components inserted: Hidalgo and nephew standard width volar distal radius locking plate Reason for procedure: Patient is a very pleasant 54-year-old female who sustained a ground-level fall and was seen in the emergency department where closed reduction of her right wrist fracture was performed. She was referred to myself for definitive management. Please see my outpatient consult note for further details. After a discussion of the risks, benefits, and alternatives to the above procedure, I recommended surgery based on the initial angulation and large dorsal cortical piece. She elected to proceed. Description of procedure: Patient was greeted in the preoperative area by myself for the correct extremity was verified and marked. She was taken to the operative suite and her antibiotics were started as she is brought back. Once the operating room, she was transferred gently supine to the operating table and secured the bed with all pressure points padded and had successful induction of a general anesthetic. We attached the hand board to the operating room table. Her splint was removed and a chlorhexidine pre-scrub was accomplished. A nonsterile tourniquet was applied and secured in place to her right upper extremity. Right upper extremity was then prepped and draped in our usual sterile fashion we conducted our standard preoperative timeout. After this, I palpated for her radial artery and FCR tendon and shahzad a line between these for my standard volar Jairo approach to the distal radius. Extremity was exsanguinated with an Esmarch and tourniquet was insufflated to 250 mmHg. Skin was incised with a scalpel and used tenotomies to dissect subcutaneous tissues tissue. Bipolar cautery was used for hemostasis as needed. I identified the fascia and incised this in line with the skin incision and bluntly dissected down to the pronator quadratus which was released with electrocautery off of the volar distal radius. I used a periosteal elevator to expose the bone in anticipation of my plate application. The brachioradialis was released sharply. I identified the fracture site and performed my reduction maneuver and confirmed appropriate reduction under triplanar fluoroscopy. I provisionally pin the f racture and position and sized and placed my plate against the bone, confirming appropriate position. I then placed a nonlocking screw to secure the plate to the bone. Next I placed a nonlocking screw in the distal row to secure the plate to the bone there, I then placed locking screws, filling the distal row, taking care to ensure extra-articular placement. After this, I confirmed appropriate reduction and hardware position. I then placed 2 more nonlocking screws proximal to the fracture site to secure the plate to the bone. I then took my final images. The operative field was then thoroughly irrigated out, tourniquet was let down, and a couple areas of venous oozing were cauterized with the bipolar cautery. I then reapproximated the pronator quadratus with [id number] 2-0 Vicryl. Inverted interrupted 2-0 Vicryl was used for subcutaneous tissue and 3-0 nylon in a mattress fashion for skin. Prior to wound closure, all counts correct �2. No complications. Local anesthetic was injected in the lucretia-incisional soft tissues. The arm and hand were cleansed and dried and a sterile dressing was applied followed by a sugar tong splint. She tolerated surgery well. At the conclusion, she was awakened from anesthesia after the splint hardened and taken to the PACU in a stable and extubated condition. Postoperative plan is to discharge her home. She will follow up with me in 2 weeks, she'll be nonweightbearing. She will contact my office should she have any complaint or concern. MARK ALEJANDRA II, MD Jun 18, 2019 07:14
[2019-06-18] MEDS ORDERED: MIDAZOLAM HCL/PF 2 MG/2 ML VIAL. ONE (07:16)
[2019-06-18] MEDS ORDERED: GLYCOPYRROLATE 1 MG/5 ML VIAL. ONE (07:33)
[2019-06-18] MEDS ORDERED: SEVOFLURANE 61 TO 120 MINUTES. IH ONE (07:56)
[2019-06-18] MEDS: fentaNYL PF VIAL 100 MCG/2 ML VIAL IV PRN ×2 (09:17→09:24)
[2019-06-18] MEDS: MORPHINE SULFATE 2 MG/ML VIAL. IV PRN ×2 (09:27→09:36)
[2019-06-18] MEDS ORDERED: HYDROcodone/APAP 5/325MG 1 TAB TABLET PO ONE (09:45)
[2019-06-18 09:51] VITALS: BP 108/54
[2019-06-18] MEDS ORDERED: KETOROLAC 30 MG/ML VIAL. ONE (10:39)
== END 2019-06-18 10:05 ==
LOC: SURG 06:08
PROVIDERS: ATTEND Orthopaedic Surgery Sports Medicine
DX: S52.551A Other extraarticular fracture of lower end of right radius, initial encounter for closed fracture (principal); E78.00 Pure hypercholesterolemia, unspecified; K21.9 Gastro-esophageal reflux disease without esophagitis; G43.909 Migraine, unspecified, not intractable, without status migrainosus; E03.9 Hypothyroidism, unspecified; Z98.890 Other specified postprocedural states; Z90.710 Acquired absence of both cervix and uterus; Z79.899 Other long term (current) drug therapy; W18.39XA Other fall on same level, initial encounter; Y93.89 Activity, other specified; Y92.89 Other specified places as the place of occurrence of the external cause; Y99.8 Other external cause status
CPT/HCPCS: 25607; 36415; 76000; 82306; A7015; C1713; J0696; J1100; J1885; J2001; J2250; J2270; J2405; J2704; J3010; J3490

== ENCOUNTER → 2019-10-06 | Outpatient (CLI) | payer OTHER ==
--- NOTE | 2019-10-06 09:54 | KCIC ---
CERVICAL SPINE WO CONTRAST History: Cervical radiculopathy, right greater than left Technique: Multiplanar, multi sequential noncontrast MR imaging was performed of the cervical spine. Comparison: None Findings: Normal vertebral body height and alignment. No fracture. No pathologic signal abnormality within the cervical spinal cord. C2-C3: No canal or neuroforaminal narrowing. Mild facet arthropathy. C3-C4: No canal or neuroforaminal narrowing. Mild facet arthropathy. C4-C5: No canal or neuroforaminal narrowing. Mild facet arthropathy. C5-C6: Small posterior disc osteophyte complex. Indention of ventral thecal sac. Mild cord flattening. No canal narrowing. No neuroforaminal narrowing. Mild facet arthropathy. C6-C7: No canal or neuroforaminal narrowing. C7-T1: No canal or neuroforaminal narrowing. Mild facet arthropathy. T3-T4 left facet arthropathy contributing to mild left neuroforaminal narrowing. Impression: 1. Mild multilevel cervical spondylosis most prominent C5-C6. No significant canal or neuroforaminal narrowing. 2. Upper cervical facet arthropathy with mild right T3-T4 neuroforaminal narrowing. Electronically signed by: Jin Dumas DO (10/06/2019 9:51 AM) [facility]
== END | disposition home or self-care (01) ==
LOC: KCIC MRI 08:06
PROVIDERS: ATTEND Nurse Practitioner Gerontology
DX: M47.22 Other spondylosis with radiculopathy, cervical region (principal); M25.78 Osteophyte, vertebrae; M12.88 Other specific arthropathies, not elsewhere classified, other specified site; M48.04 Spinal stenosis, thoracic region; Z90.710 Acquired absence of both cervix and uterus
CPT/HCPCS: 72141

== ENCOUNTER → 2019-10-28 | Outpatient (CLI) | payer OTHER ==
[2019-10-28 08:34] LABS: ALBUMIN/GLOBULIN RATIO 1.4 (1.0-1.7); CALCIUM 9.2 mg/dL (8.5-10.1); CREATININE 0.9 mg/dL (0.6-1.0); POTASSIUM 4.9 mmol/L (3.5-5.1); TOTAL BILIRUBIN 0.4 mg/dL (0.2-1.0); TOTAL PROTEIN 6.8 g/dL (6.4-8.2)
[2019-10-28 08:38] LABS: CHOLESTEROL/HDL RATIO 4.6
[2019-10-28 08:48] LABS: FREE T4 0.87 ng/dL (0.76-1.46); THYROID STIM HORMONE (TSH) 5.237 uIU/mL (0.358-3.74)
[2019-10-28 08:57] LABS: BASO % 1 % (0-3); EOS # 0.1 x10^3/uL (0.0-0.7); EOS % 2 % (0-3); HEMOGLOBIN 14.7 g/dL (12.0-15.5); LYMPH # 1.9 x10^3/uL (1.0-4.8); LYMPH % 31 % (24-48); MEAN CORPUSCULAR HEMOGLOBIN 31 pg (25-35); MEAN CORPUSCULAR HGB CONC 33 g/dL (31-37); MEAN CORPUSCULAR VOLUME 92 fL (79-100); MONO # 0.6 x10^3/uL (0.0-1.1); MONO % 9 % (0-9); NEUT # 3.5 x10^3/uL (1.8-7.7); NEUT % 57 % (31-73); PLATELET COUNT 312 x10^3/uL (140-400); RED BLOOD COUNT 4.76 x10^6/uL (3.50-5.40); RED CELL DISTRIBUTION WIDTH 12.9 % (11.5-14.5); WHITE BLOOD COUNT 6.2 x10^3/uL (4.0-11.0)
== END | disposition home or self-care (01) ==
LOC: LAB 08:02
PROVIDERS: ATTEND Family Medicine
DX: G43.009 Migraine without aura, not intractable, without status migrainosus (principal); E78.2 Mixed hyperlipidemia; Z86.39 Personal history of other endocrine, nutritional and metabolic disease
CPT/HCPCS: 36415; 80053; 80061; 84439; 84443; 85025

== ENCOUNTER → 2020-02-19 | Outpatient (CLI) | payer OTHER ==
[2020-02-19 10:44] LABS: BASO # 0.1 x10^3/uL (0.0-0.2); BASO % 1 % (0-3); EOS # 0.1 x10^3/uL (0.0-0.7); EOS % 1 % (0-3); HEMOGLOBIN 14.6 g/dL (12.0-15.5); LYMPH # 1.9 x10^3/uL (1.0-4.8); LYMPH % 22 % (24-48); MEAN CORPUSCULAR HEMOGLOBIN 32 pg (25-35); MEAN CORPUSCULAR HGB CONC 34 g/dL (31-37); MEAN CORPUSCULAR VOLUME 94 fL (79-100); MONO # 0.7 x10^3/uL (0.0-1.1); MONO % 8 % (0-9); NEUT # 5.7 x10^3/uL (1.8-7.7); NEUT % 68 % (31-73); PLATELET COUNT 302 x10^3/uL (140-400); RED CELL DISTRIBUTION WIDTH 12.9 % (11.5-14.5); WHITE BLOOD COUNT 8.4 x10^3/uL (4.0-11.0)
[2020-02-19 10:48] LABS: ALBUMIN 3.8 g/dL (3.4-5.0); ALBUMIN/GLOBULIN RATIO 1.2 (1.0-1.7); CALCIUM 8.7 mg/dL (8.5-10.1); GFR 57.6; POTASSIUM 4.6 mmol/L (3.5-5.1); TOTAL BILIRUBIN 0.2 mg/dL (0.2-1.0); TOTAL PROTEIN 6.9 g/dL (6.4-8.2)
== END | disposition home or self-care (01) ==
LOC: LAB 10:14
PROVIDERS: ATTEND Family Medicine
DX: R10.13 Epigastric pain (principal)
CPT/HCPCS: 36415; 80053; 83690; 85025

== ENCOUNTER → 2020-04-14 | Outpatient (CLI) | payer OTHER ==
--- NOTE | 2020-04-14 17:06 | RAD ---
EXAM: BILATERAL DIGITAL 3D SCREENING MAMMOGRAPHY. HISTORY: Routine mammographic screening. TECHNIQUE: Bilateral digital 3D and tomographic images were obtained in CC and MLO projections. Computer-aided detection was applied. COMPARISON: 07/25/2018. COMPOSITION: B. There are scattered areas of fibroglandular density. FINDINGS: There are no suspicious masses, microcalcifications or architectural distortion. The parenchymal pattern is stable. BI-RADS CATEGORY 1: Negative. RECOMMENDATION: 1. Routine screening mammography in one year. If mammography demonstrates dense breast tissue (heterogenously dense or extremely dense, category C or D), which could hide abnormalities, and if other risk factors for breast cancer have been identified, supplemental screening tests that may be suggested by the ordering physician may be of benefit. Dense breast tissue, in and of itself, is a relatively common condition. Therefore, this information is not provided to cause undue concern, but rather to raise awareness and to promote discussion with the referring physician regarding the presence of other risk factors, in addition to dense breast tissue. The results of this mammography examination is provided to the patient and referring physician. The patient should contact their referring physician if any questions or concerns exist regarding this report. PQRS compliance statement - Patient information was entered into a reminder system with a target due date for the next mammogram. "Our facility is accredited by the [employer] Mammography Program." Electronically signed by: Benny Barksdale MD (04/14/2020 5:03 PM) [id number]
== END | disposition home or self-care (01) ==
LOC: MAMMO 14:18
PROVIDERS: ATTEND Family Medicine
DX: Z12.31 Encounter for screening mammogram for malignant neoplasm of breast (principal)
CPT/HCPCS: 77063; 77067

== ENCOUNTER → 2020-08-05 | Outpatient (CLI) | payer OTHER | LOC: LAB 13:26 | PROVIDERS: ATTEND Internal Medicine Pulmonary Disease | DX: R51.9 Headache, unspecified (principal); R09.81 Nasal congestion; Z20.828 Contact with and (suspected) exposure to other viral communicable diseases | CPT/HCPCS: U0003 ==

== ENCOUNTER 2020-08-09 10:12 | Emergency (ER) | payer OTHER ==
[~2020-08-09] VITALS: Ht 172.7 cm; Wt 81.8 kg
[2020-08-09] MEDS ORDERED: METOCLOPRAMIDE HCL 10 MG/2 ML VIAL. IVP ONE (11:30)
[2020-08-09] MEDS ORDERED: IV NORMAL SALINE 1000ML BAG 1,000 ML IV ONE (11:30)
[2020-08-09] MEDS ORDERED: KETOROLAC 15 MG/ML VIAL. IVP ONE (11:30)
[2020-08-09 11:41] LABS: BASO # 0.1 x10^3/uL (0.0-0.2); BASO % 1 % (0-3); EOS # 0.1 x10^3/uL (0.0-0.7); EOS % 1 % (0-3); HEMATOCRIT 40.2 % (36.0-47.0); HEMOGLOBIN 13.7 g/dL (12.0-15.5); LYMPH # 1.4 x10^3/uL (1.0-4.8); LYMPH % 18 % (24-48); MEAN CORPUSCULAR HEMOGLOBIN 32 pg (25-35); MEAN CORPUSCULAR HGB CONC 34 g/dL (31-37); MEAN CORPUSCULAR VOLUME 94 fL (79-100); MONO # 0.6 x10^3/uL (0.0-1.1); MONO % 7 % (0-9); NEUT # 5.6 x10^3/uL (1.8-7.7); NEUT % 73 % (31-73); PLATELET COUNT 272 x10^3/uL (140-400); RED BLOOD COUNT 4.26 x10^6/uL (3.50-5.40); RED CELL DISTRIBUTION WIDTH 12.9 % (11.5-14.5); WHITE BLOOD COUNT 7.7 x10^3/uL (4.0-11.0)
[2020-08-09 11:44] LABS: BILIRUBIN,URINE NEGATIVE (NEG); CLARITY,URINE TURBID; COLOR,URINE YELLOW; NITRITE,URINE NEGATIVE (NEG); PH,URINE 6.5 (<5.0-8.0); PROTEIN,URINE NEGATIVE (NEG-TRACE); UROBILINOGEN,URINE 0.2 mg/dL (0.2 mg/dL)
[2020-08-09 11:48] LABS: BACTERIA,URINE FEW /HPF (0-FEW); WBC,URINE RARE /HPF (0-4)
[2020-08-09 11:49] LABS: RBC,URINE 0 /HPF (0-2)
[2020-08-09 11:55] LABS: CALCIUM 8.5 mg/dL (8.5-10.1); CREATININE 0.9 mg/dL (0.6-1.0); GFR 64.8
[2020-08-09 11:59] LABS: ALBUMIN 3.8 g/dL (3.4-5.0); ALBUMIN/GLOBULIN RATIO 1.6 (1.0-1.7); MAGNESIUM 2.2 mg/dL (1.8-2.4); TOTAL BILIRUBIN 0.4 mg/dL (0.2-1.0); TOTAL PROTEIN 6.2 g/dL (6.4-8.2)
--- NOTE | 2020-08-09 12:06 | RAD ---
Examination: CT of the abdomen pelvis without contrast HISTORY: History of right flank pain COMPARISON: None available Technique: Axial CT images of the pelvis were performed without contrast. Coronal and sagittal reformats are performed Exposure: One or more of the following individualized dose reduction techniques were utilized for this examination: 1. Automated exposure control 2. Adjustment of the mA and/or kV according to patient size 3. Use of iterative reconstruction technique FINDINGS: The bibasilar lungs are clear. No evidence of free air identified abdomen. The evaluation of the solid organs is limited due to lack of IV contrast. The evaluation of bowel is limited due to lack of oral contrast. The liver, adrenals grossly appears unremarkable. Gallbladder is mildly distended. Few calcified granulomas identified in the spleen. The visualized pancreas grossly appears unremarkable. The small bowel is nondilated. Feces and gas noted in the colon. Appendix is normal. No evidence of hydronephrosis. No evidence of intrarenal collecting system calculi identified. There is a 2.5 mm calcification identified, best visualized on series 2 image 141 along the course of the right ureter, could be ureteral calculus or vascular calcification in the adjacent vessel. Mild degenerative changes lumbar spine IMPRESSION: 1. No evidence of hydronephrosis. There is a 2.5 mm calcification identified, best visualized on series 2 image 141 along the course of the right ureter, could be ureteral calculus or vascular calcification in the adjacent vessel. Differentiation is difficult but given the lack of hydronephrosis, this most likely is a vascular calcification. Electronically signed by: Eric Livingston MD (08/09/2020 12:03 PM) [id number]
[2020-08-09 12:07] LABS: CREATINE KINASE 46 U/L (26-192)
[2020-08-09] MEDS ORDERED: TAMSULOSIN 0.4 MG CAP.ER.24H. PO ONE (12:45)
[2020-08-09] MEDS ORDERED: TAMS0.4C97 PO (12:54)
--- NOTE | 2020-08-09 12:54 | PHYS DOC ---
Past Medical History Past Medical History: GERD, Migraines Past Surgical History: Hysterectomy, Tonsillectomy, Other Additional Past Surgical Histo: KNEE SX, JAW SX, right shoulder, rt wrist sx Smoking Status: Never Smoker Alcohol Use: Occasionally Drug Use: None General Adult EDM: Chief Complaint: ABDOMINAL PAIN HPI: HPI: Patient is a 55 year old [f__sex] who presents with [] Review of Systems: Review of Systems: Constitutional: Denies fever or chills. [] Eyes: Denies change in visual acuity. [] HENT: Denies nasal congestion or sore throat. [] Respiratory: Denies cough or shortness of breath. [] Cardiovascular: Denies chest pain or edema. [] GI: Denies abdominal pain, nausea, vomiting, bloody stools or diarrhea. [] : Denies dysuria. [] Musculoskeletal: Denies back pain or joint pain. [] Integument: Denies rash. [] Neurologic: Denies headache, focal weakness or sensory changes. [] Endocrine: Denies polyuria or polydipsia. [] Lymphatic: Denies swollen glands. [] Psychiatric: Denies depression or anxiety. [] Heart Score: Risk Factors: Risk Factors: DM, Current or recent (<one month) smoker, HTN, HLP, family history of CAD, obesity. Risk Scores: Score 0 - 3: 2.5% MACE over next 6 weeks - Discharge Home Score 4 - 6: 20.3% MACE over next 6 weeks - Admit for Clinical Observation Score 7 - 10: 72.7% MACE over next 6 weeks - Early Invasive Strategies Current Medications: Current Medications Medications (Trade) Dose Ordered Sig/Nabor Start Time Stop Time Status Last Admin Dose Admin Ketorolac Tromethamine (Toradol 15mg Vial) 15 mg 1X ONCE 08/09/20 11:30 08/09/20 11:42 DC 08/09/20 12:20 15 MG Metoclopramide HCl (Reglan Vial) 10 mg 1X ONCE 08/09/20 11:30 08/09/20 11:42 DC 08/09/20 12:17 10 MG Sodium Chloride 1,000 ml @ 1,000 mls/hr 1X ONCE 08/09/20 11:30 08/09/20 12:29 DC 08/09/20 12:12 1,000 MLS/HR Tamsulosin HCl (Flomax) 0.4 mg 1X ONCE 08/09/20 12:45 08/09/20 12:49 DC Allergies: Allergies: Allergies Coded Allergies Type Severity Reaction Last Updated Verified No Known Drug Allergies 08/09/20 No Physical Exam: PE: Constitutional: Well developed, well nourished, no acute distress, non-toxic appearance. [] HENT: Normocephalic, atraumatic, bilateral external ears normal, oropharynx moist, no oral exudates, nose normal. [] Eyes: PERRLA, EOMI, conjunctiva normal, no discharge. [] Neck: Normal range of motion, no tenderness, supple, no stridor. [] Cardiovascular:Heart rate regular rhythm, no murmur [] Lungs & Thorax: Bilateral breath sounds clear to auscultation [] Abdomen: Bowel sounds normal, soft, no tenderness, no masses, no pulsatile masses. [] Skin: Warm, dry, no erythema, no rash. [] Back: No tenderness, no CVA tenderness. [] Extremities: No tenderness, no cyanosis, no clubbing, ROM intact, no edema. [] Neurologic: Alert and oriented X 3, normal motor function, normal sensory function, no focal deficits noted. [] Psychologic: Affect normal, judgement normal, mood normal. [] Current Patient Data: Labs: Laboratory Tests Test 08/09/20 10:27 08/09/20 11:05 Urine Collection Type Void Urine Color Yellow Urine Clarity Turbid Urine pH 6.5 (<5.0-8.0) Urine Specific Kimper <=1.005 (1.000-1.030) Urine Protein Negative mg/dL (NEG-TRACE) Urine Glucose (UA) Negative mg/dL (NEG) Urine Ketones (Stick) Negative mg/dL (NEG) Urine Blood Negative (NEG) Urine Nitrite Negative (NEG) Urine Bilirubin Negative (NEG) Urine Urobilinogen Dipstick 0.2 mg/dL (0.2 mg/dL) Urine Leukocyte Esterase Negative (NEG) Urine RBC 0 /HPF (0-2) Urine WBC Rare /HPF (0-4) Urine Squamous Epithelial Cells Few /LPF Urine Bacteria Few /HPF (0-FEW) White Blood Count 7.7 x10^3/uL (4.0-11.0) Red Blood Count 4.26 x10^6/uL (3.50-5.40) Hemoglobin 13.7 g/dL (12.0-15.5) Hematocrit 40.2 % (36.0-47.0) Mean Corpuscular Volume 94 fL (79-100) Mean Corpuscular Hemoglobin 32 pg (25-35) Mean Corpuscular Hemoglobin Concent 34 g/dL (31-37) Red Cell Distribution Width 12.9 % (11.5-14.5) Platelet Count 272 x10^3/uL (140-400) Neutrophils (%) (Auto) 73 % (31-73) Lymphocytes (%) (Auto) 18 % (24-48) L Monocytes (%) (Auto) 7 % (0-9) Eosinophils (%) (Auto) 1 % (0-3) Basophils (%) (Auto) 1 % (0-3) Neutrophils # (Auto) 5.6 x10^3/uL (1.8-7.7) Lymphocytes # (Auto) 1.4 x10^3/uL (1.0-4.8) Monocytes # (Auto) 0.6 x10^3/uL (0.0-1.1) Eosinophils # (Auto) 0.1 x10^3/uL (0.0-0.7) Basophils # (Auto) 0.1 x10^3/uL (0.0-0.2) Sodium Level 138 mmol/L (136-145) Potassium Level 4.0 mmol/L (3.5-5.1) Chloride Level 108 mmol/L (98-107) H Carbon Dioxide Level 20 mmol/L (21-32) L Anion Gap 10 (6-14) Blood Urea Nitrogen 14 mg/dL (7-20) Creatinine 0.9 mg/dL (0.6-1.0) Estimated GFR (Cockcroft-Gault) 64.8 BUN/Creatinine Ratio 16 (6-20) Glucose Level 93 mg/dL (70-99) Calcium Level 8.5 mg/dL (8.5-10.1) Magnesium Level 2.2 mg/dL (1.8-2.4) Total Bilirubin 0.4 mg/dL (0.2-1.0) Aspartate Amino Transferase (AST) 12 U/L (15-37) L Alanine Aminotransferase (ALT) 18 U/L (14-59) Alkaline Phosphatase 53 U/L (46-116) Creatine Kinase 46 U/L (26-192) Creatine Kinase MB (Mass) 0.8 ng/mL (0.0-3.6) Creatine Kinase MB Relative Index % (0-4) Total Protein 6.2 g/dL (6.4-8.2) L Albumin 3.8 g/dL (3.4-5.0) Albumin/Globulin Ratio 1.6 (1.0-1.7) Lipase 140 U/L (73-393) Laboratory Tests 08/09/20 11:05 Laboratory Tests 08/09/20 11:05 Vital Signs: Vital Signs Date Time Temp Pulse Resp B/P (MAP) Pulse Ox O2 Delivery O2 Flow Rate FiO2 08/09/20 10:44 98.3 69 18 121/67 (85) 99 Room Air 98.3 EKG: EKG: [] Radiology/Procedures: Radiology/Procedures: [] Course & Med Decision Making: Course & Med Decision Making Pertinent Labs and Imaging studies reviewed. (See chart for details) [] Dragon Disclaimer: Dragon Disclaimer: This electronic medical record was generated, in whole or in part, using a voice recognition dictation system. Departure Departure Impression: Primary Impression: Right flank pain Disposition: 01 DC HOME SELF CARE/HOMELESS Condition: STABLE Referrals: GORDON TAVAREZ MD (PCP) Patient Instructions: Diet for Kidney Stones, Flank Pain, Oqez-bc-Ieht, Kidney Stones, Mahe-ol-Nmom Additional Instructions: Increase fluid hydration. Take over the counter Tylenol and/or Ibuprofen for pain or discomfort. Scripts Tamsulosin Hcl (FLOMAX) 0.4 Mg Cap.er.24h 1 CAP PO DAILY, #7 CAP Prov: GRUPO MEJIA DO 08/09/20 GRUPO MEJIA DO Aug 09, 2020 12:54
[2020-08-09 13:30] VITALS: BP 94/50
== END 2020-08-09 13:34 | disposition home or self-care (01) ==
LOC: ER 10:12
DX: R10.9 Unspecified abdominal pain (principal); K21.9 Gastro-esophageal reflux disease without esophagitis; G43.909 Migraine, unspecified, not intractable, without status migrainosus; Z90.710 Acquired absence of both cervix and uterus; Z98.890 Other specified postprocedural states
CPT/HCPCS: 36415; 74176; 80053; 81001; 82553; 83690; 83735; 85025; 96361; 96374; 96375; 99285; J1885; J2765; J7030

== ENCOUNTER → 2021-06-28 | Outpatient (CLI) | payer OTHER ==
[~2021-06-28] MED LIST changes: +TAMS0.4C97 PO
[2021-06-28 08:31] LABS: BASO % 1 % (0-3); EOS # 0.1 x10^3/uL (0.0-0.7); EOS % 1 % (0-3); HEMATOCRIT 43.5 % (36.0-47.0); HEMOGLOBIN 14.8 g/dL (12.0-15.5); LYMPH # 2.3 x10^3/uL (1.0-4.8); LYMPH % 34 % (24-48); MEAN CORPUSCULAR HEMOGLOBIN 32 pg (25-35); MEAN CORPUSCULAR HGB CONC 34 g/dL (31-37); MEAN CORPUSCULAR VOLUME 95 fL (79-100); MONO # 0.6 x10^3/uL (0.0-1.1); MONO % 10 % (0-9); NEUT # 3.7 x10^3/uL (1.8-7.7); NEUT % 55 % (31-73); PLATELET COUNT 339 x10^3/uL (140-400); RED BLOOD COUNT 4.59 x10^6/uL (3.50-5.40); RED CELL DISTRIBUTION WIDTH 12.7 % (11.5-14.5); WHITE BLOOD COUNT 6.7 x10^3/uL (4.0-11.0)
[2021-06-28 09:34] LABS: ALBUMIN 3.9 g/dL (3.4-5.0); ALBUMIN/GLOBULIN RATIO 1.2 (1.0-1.7); CALCIUM 9.3 mg/dL (8.5-10.1); CREATININE 1.1 mg/dL (0.6-1.0); GFR 51.2; POTASSIUM 5.4 mmol/L (3.5-5.1); TOTAL BILIRUBIN 0.5 mg/dL (0.2-1.0); TOTAL PROTEIN 7.1 g/dL (6.4-8.2)
[2021-06-28 09:45] LABS: FREE T4 0.83 ng/dL (0.76-1.46); THYROID STIM HORMONE (TSH) 6.068 uIU/mL (0.358-3.74)
[2021-06-28 22:09] LABS: FSH 48.7 mIU/mL (.); LUTEINIZING HORMONE 37.7 mIU/mL (.)
[2021-06-29 07:44] LABS: HEMOGLOBIN A1C 5.5 % (4.8-5.6)
== END ==
LOC: LAB 08:01
PROVIDERS: ATTEND Family Medicine
DX: R23.2 Flushing (principal); R73.09 Other abnormal glucose; Z86.39 Personal history of other endocrine, nutritional and metabolic disease
CPT/HCPCS: 36415; 80053; 82670; 83001; 83002; 83036; 84439; 84443; 85025

== ENCOUNTER → 2021-07-15 | Outpatient (CLI) | payer OTHER ==
[~2021-07-15] MED LIST changes: +CONTRAST GIVEN. MC PRN; +IOHEXOL 240 MG/ML 50ML VIAL. PO ONE; +IOHEXOL 300 MG/ML 100ML VIAL. IV ONE
--- NOTE | 2021-07-15 14:10 | RAD ---
Exam: CT abdomen/pelvis with intravenous contrast Indication: Upper abdominal pain Comparison: CT chest abdomen pelvis 08/09/2020 Technique: Helical CT imaging performed of the abdomen and pelvis after the intravenous administratio n of 60 mL Omnipaque 300 contrast. Sagittal and coronal reformats were obtained. One or more of the following individualized dose reduction techniques were utilized for this examinat ion: 1. Automated exposure control of her abdominal pain 2. Adjustment of the mA and/or kV according to patient size 3. Use of iterative reconstruction technique. Findings: Lower chest: Lung bases are clear. Heart is normal in size. Liver: There is a 2.4 cm hypodense lesion in segment 4 with greater than fluid density, Hounsfield un its measure 40-50. This was likely present on CT abdomen pelvis 08/09/2020 but comparison difficult d ue to lack of contrast on that exam. Gallbladder/Biliary Tree: Normal. Pancreas: Normal. Spleen: There are calcified splenic granulomas. No splenomegaly. Adrenal Glands: Normal. Kidneys/Ureters/Bladder: 3 mm nonobstructing left renal calculus. Kidneys enhance symmetrically. No h ydronephrosis. Ureters and bladder are normal. Reproductive Organs: Uterus is surgically absent. No adnexal mass. Stomach, small bowel, and colon: Stomach is normal. There is no small bowel obstruction. The colon is normal. Probable normal appendix visualized. Vasculature: No aortic aneurysm. Lymph Nodes: No lymphadenopathy. Peritoneum and retroperitoneum: No free fluid or free air. Bones: No acute osseous abnormality. IMPRESSION: 1. Indeterminate 2.4 cm hypodense liver lesion. This was likely present on CT abdomen pelvis 020 but comparison is difficult due to lack of contrast on that exam. Recommend CT or MRI with liver mass protocol to further evaluate. 2. Left nephrolithiasis. Electronically signed by: Lilliana Ojeda MD (07/15/2021 2:08 PM) [facility]
== END ==
LOC: CT 08:54
PROVIDERS: ATTEND Family Medicine
DX: N20.0 Calculus of kidney (principal); R10.10 Upper abdominal pain, unspecified
CPT/HCPCS: 74177; Q9966; Q9967

== ENCOUNTER → 2021-08-01 | Outpatient (CLI) | payer OTHER ==
[~2021-08-01] MED LIST changes: -CONTRAST GIVEN. MC PRN; +IBUP-1060 PO; -IOHEXOL 240 MG/ML 50ML VIAL. PO ONE; -IOHEXOL 300 MG/ML 100ML VIAL. IV ONE; +OXYC-325 PO; +PANT40TA77 PO; +SINCALIDE 1.52 MCG in IV NORMAL SALINE 50ML 30 ML IV ONE; +SUMA100T4 PO; +TRAM50TA PO
--- NOTE | 2021-08-01 08:16 | RAD ---
EXAM: ULTRASOUND ABDOMEN LIMITED CLINICAL HISTORY: EPIGASTRIC PAIN COMPARISON: None available. TECHNIQUE: Limited ultrasound examination of the right upper quadrant of the abdomen was performed. FINDINGS: The head and body of the pancreas are unremarkable. The tail is obscured by intestinal gas.. Liver: 15.3 cm in length. Increased hepatic echogenicity relative to the right kidney consistent wi th hepatic steatosis.. A 2.1 x 2.8 x 2.1 cm echogenic lesion is seen within the left hepatic lobe. F low seen within the portal veins. Biliary: No cholelithiasis. Debris is seen within the gallbladder. No wall thickening or pericholecys tic fluid. There is no pain with direct transducer pressure over the gallbladder. Common bile duct measures 0.3 cm. Right Kidney: 10.1 cm in bipolar length. Normal renal cortical echotexture and thickness. No focal re nal lesion, shadowing renal calculus or hydronephrosis. Visualized portions of the abdominal aorta and inferior vena cava are unremarkable. There is no free fluid in the subhepatic space. IMPRESSION: 1. Echogenic lesion within the left hepatic lobe may represent a hemangioma. 2. Debris is seen within the gallbladder. No sonographic evidence for acute cholecystitis. Electronically signed by: Hermilo Bose MD (08/01/2021 8:14 AM) [id number]
--- NOTE | 2021-08-01 11:11 | RAD ---
INDICATION: Epigastric pain COMPARISON: Ultrasound from earlier same day TECHNIQUE: 5.5mCi of Tc99m Choletec was injected intravenously followed by scintigraphic images of the abdomen. 1.5 mcg of CCK was then injected and a gallbladder ejection fraction was calculated. FINDINGS: Appropriate radiotracer clearance from the blood pool. Appropriate radiotracer excretion into the biliary tree. Prompt passage of contrast into the small bowel. Visualization of the gallbladder prior to the 60 minute time point. Gallbladder ejection fraction is 55 percent. IMPRESSION: * No scintigraphic evidence of acute cholecystitis or high grade biliary obstruction. * No evidence of biliary dyskinesia. Electronically signed by: Bharath Cruz MD (08/01/2021 11:08 AM) [id number]
== END ==
LOC: US 06:46
PROVIDERS: ATTEND Internal Medicine Gastroenterology
DX: K76.89 Other specified diseases of liver (principal); R10.13 Epigastric pain
CPT/HCPCS: 76705; 78227; A9537; J2805

== ENCOUNTER 2021-08-05 09:41 | Day surgery (SDC) | payer OTHER ==
[~2021-08-05] VITALS: Ht 172.7 cm; Wt 78.0 kg
[~2021-08-05 09:41] MED LIST changes: +ACETAMINOPHEN 500 MG TABLET PO PRN; +BUPIVACAINE-EPI 0.25% 30 ML VIAL KIT. ONE; +HYDROmorphone 2 MG/ML VIAL IVP PRN; +IV RINGERS,LACTATED 1000ML 1,000 ML IV SCH; -OXYC-325 PO; +PROCHLORPERAZINE 10 MG/2 ML VIAL. IVP PRN; -SINCALIDE 1.52 MCG in IV NORMAL SALINE 50ML 30 ML IV ONE; +ceFAZolin SODIUM IV Push 1 GM VIAL. IVP PRN; +fentaNYL PF VIAL 100 MCG/2 ML VIAL IVP PRN
[2021-08-05 10:29] VITALS: BP 117/73
--- NOTE | 2021-08-05 10:34 | NUR ---
[employer] 1CC GIVEN IV PER ORDERS AND MIXED PER PACKAGE INSTRUCTIONS
[2021-08-05] MEDS ORDERED: SEVOFLURANE 31 TO 60 MINUTES. IH ONE (10:47)
[2021-08-05] MEDS ORDERED: DEXAMETHASONE SOD PHOS 4 MG/ML VIAL ONE (10:47)
[2021-08-05] MEDS ORDERED: PROPOFOL 10 MG/ML (20ML) VIAL. IV ONE (10:47)
[2021-08-05] MEDS ORDERED: ROCURONIUM 50 MG/5 ML VIAL. ONE (10:47)
[2021-08-05] MEDS ORDERED: MIDAZOLAM HCL/PF 2 MG/2 ML VIAL. ONE (10:47)
[2021-08-05] MEDS ORDERED: ONDANSETRON PF 4 MG/2 ML VIAL. ONE ×2 (10:47→12:23)
[2021-08-05] MEDS ORDERED: LIDOCAINE 2% PF 5 ML VIAL. ONE (10:47)
[2021-08-05] MEDS ORDERED: fentaNYL PF VIAL 100 MCG/2 ML VIAL ONE ×3 (10:47→12:31)
[2021-08-05] MEDS ORDERED: GLYCOPYRROLATE 1 MG/5 ML VIAL. ONE (11:25)
[2021-08-05] MEDS ORDERED: NEOSTIGMINE METHYLSULFATE 5 MG/5 ML SYRINGE. ONE (11:26)
[2021-08-05] MEDS ORDERED: BUPIVACAINE-EPI 0.25%-1:200000 MPF 30 ML VIAL. INJ ONE (11:28)
--- NOTE | 2021-08-05 11:41 | PDOC4 ---
Operative Note Operative Note Date: August 052020 1139 Preoperative diagnosis: Chronic cholecystitis Postoperative diagnosis: Same Procedure: Laparoscopic cholecystectomy with fluorescein cholangiography Surgeon: Jose Specimen: Gallbladder Dictation: Patient is a 56-year-old female with complaints of right upper quadrant abdominal pain postprandial nausea and ultrasound showing gallstones. Procedure of laparoscopic cholecystectomy was explained to the patient detail risk benefits were also discussed including bleeding infection injury to intra- abdominal contents possible necessitating further open operations alternatives to this procedure also discussed with the patient who seemed to understand and gave a verbal written consent to have the procedure performed. Patient was taken to the operating room placed in the supine position general anesthesia was initiated once patient was sleeping intubated her abdomen was prepped and draped usual sterile fashion using ChloraPrep. An area just below the umbilicus was injected with quarter percent Marcaine with epinephrine incision was made 11 blade scalpel and a varies needle was placed within the abdomen creating pneumoperitoneum once this was complete 11 mm port was placed in a 5 mm camera was placed within the abdomen which was inspected no other abnormalities were noted. A 5 mm port was placed in the epigastrium a 5 mm port was placed in the right midabdomen and 5 mm ports placed in right lateral abdomen. The dome of the gallbladder is grasped retracted cephalad the infundibulum the gallbladder is grasped retracted laterally the adherent tissues the triangle were taken down the fluorescein dye was then visualized which showed good dye within the cystic duct and common bile duct without any evidence of obstruction. The cystic duct was doubly clipped and transected the cystic artery was doubly clipped and transected the gallbladder is taken off the liver with hook electrocautery placed in Endo Catch bag and roof the umbilicus right upper quadrant was irrigated and suctioned dry hemostasis deemed be appropriate the pneumoperitoneum was reduced all ports were removed the fascial defect at the umbilicus was closed with a [id number] 0 Vicryl suture and the skin was reapproximated all port sites for subcuticular Monocryl Mastisol Steri-Strips and island dressings were applied. Patient was awakened and extubated in the operating room taken to recovery in stable condition all sponge instrument needle counts listed as correct estimated blood loss 5 mL FELICITAS KENT MD Aug 05, 2021 11:41
[2021-08-05] MEDS ORDERED: OXYC-325 PO (11:43)
[2021-08-05] MEDS ORDERED: MORPHINE SULFATE 2 MG/ML INJ. ONE (12:07)
[2021-08-05] MEDS: MORPHINE SULFATE 2 MG/ML INJ. IVP PRN ×2 (12:08→12:22)
[2021-08-05] MEDS ORDERED: PROCHLORPERAZINE 10 MG/2 ML VIAL. ONE (12:11)
[2021-08-05] MEDS ORDERED: oxyCODONE/APAP 5/325 1 TAB TABLET PO ONE (12:15)
[2021-08-05 12:26] VITALS: BP 112/74
[2021-08-05] MEDS ORDERED: ONDANSETRON PF 4 MG/2 ML VIAL. IVP ONE (12:30)
[2021-08-05] MEDS: fentaNYL PF VIAL 100 MCG/2 ML VIAL IVP PRN ×2 (12:35→12:48)
--- NOTE | 2021-08-08 20:08 | PATHOLOGY ---
[facility] Accession Number: [id number] . 01 Material submitted: . gallbladder - GALLBLADDER AND CONTENTS . 01 Clinical history: . CHOLECYSTITIS LAP CHOLECYSTECTOMY . 02 Diagnosis: Gallbladder, excision: - Minimal chronic inflammation. - Negative for malignancy. (JEAN-PAULK:henrry; 08/08/2021) [facility] 08/08/2021 1800 Local . 02 Electronically signed: . Mario Pham MD, Pathologist NPI- [id number] . 01 Gross description: . Fixative: Formalin Labeled: Gallbladder and contents Specimen received: Intact cholecystectomy Dimensions: 8.8 x 4.2 x 3.0 cm Serosa: Latif-green and smooth Lymph node: None identified Mucosa: Dark green and velvety Average wall thickness: 0.1 cm Calculi: None identified within the gallbladder or container Abnormalities: None identified A1- [facility] body, fundus, and the cystic duct margin. ([facility] [place]; 08/06/2021) [facility] 08/06/2021 1141 Local . 02 Pathologist provided ICD-10: K81.1 . 02 CPT . 404770 Specimen Comment: A courtesy copy of this report has been sent to [phone], [phone] Specimen Comment: [id number] Specimen Comment: Report sent to / DR TAVAREZ Specimen Comment: A duplicate report has been generated due to demographic updates. Performed at: [facility] [address] [id number] MD Reji Tobar MD Phone: [phone] Performed at: [facility] [address] [id number] MD Elroy Woods MD Phone: [phone]
== END 2021-08-05 13:20 | disposition home or self-care (01) ==
LOC: SURG 09:41
PROVIDERS: ATTEND Surgery
DX: K81.1 Chronic cholecystitis (principal); K21.9 Gastro-esophageal reflux disease without esophagitis; E66.9 Obesity, unspecified; Z79.899 Other long term (current) drug therapy; Z98.890 Other specified postprocedural states; Z90.710 Acquired absence of both cervix and uterus; Z72.89 Other problems related to lifestyle
CPT/HCPCS: 47562; 88304; A4930; J0690; J0780; J1100; J2250; J2270; J2405; J2704; J2710; J3010; J3490; A4657

== ENCOUNTER → 2022-02-15 | Outpatient (CLI) | payer OTHER ==
[~2022-02-15] MED LIST changes: -ACETAMINOPHEN 500 MG TABLET PO PRN; -BUPIVACAINE-EPI 0.25% 30 ML VIAL KIT. ONE; -HYDROmorphone 2 MG/ML VIAL IVP PRN; -IV RINGERS,LACTATED 1000ML 1,000 ML IV SCH; -OMEP20TA8 PO; +OMEP20TA91 PO; +OXYC-325 PO; -PROCHLORPERAZINE 10 MG/2 ML VIAL. IVP PRN; -ceFAZolin SODIUM IV Push 1 GM VIAL. IVP PRN; -fentaNYL PF VIAL 100 MCG/2 ML VIAL IVP PRN
[2022-02-15 08:46] LABS: BASO % 1 % (0-3); EOS # 0.1 x10^3/uL (0.0-0.7); EOS % 1 % (0-3); HEMATOCRIT 43.1 % (36.0-47.0); HEMOGLOBIN 14.3 g/dL (12.0-15.5); LYMPH # 1.6 x10^3/uL (1.0-4.8); LYMPH % 30 % (24-48); MEAN CORPUSCULAR HEMOGLOBIN 31 pg (25-35); MEAN CORPUSCULAR HGB CONC 33 g/dL (31-37); MEAN CORPUSCULAR VOLUME 94 fL (79-100); MONO # 0.5 x10^3/uL (0.0-1.1); MONO % 10 % (0-9); NEUT # 3.3 x10^3/uL (1.8-7.7); NEUT % 59 % (31-73); PLATELET COUNT 281 x10^3/uL (140-400); RED BLOOD COUNT 4.57 x10^6/uL (3.50-5.40); RED CELL DISTRIBUTION WIDTH 13.2 % (11.5-14.5); WHITE BLOOD COUNT 5.5 x10^3/uL (4.0-11.0)
[2022-02-15 09:18] LABS: ALBUMIN 3.8 g/dL (3.4-5.0); ALBUMIN/GLOBULIN RATIO 1.2 (1.0-1.7); GFR 57.1; POTASSIUM 4.7 mmol/L (3.5-5.1); TOTAL BILIRUBIN 0.6 mg/dL (0.2-1.0); TOTAL PROTEIN 6.9 g/dL (6.4-8.2)
[2022-02-15 09:19] LABS: CHOLESTEROL/HDL RATIO 3.4
[2022-02-16 00:28] LABS: HEMOGLOBIN A1C 5.2 % (4.8-5.6)
== END ==
LOC: LAB 08:12
PROVIDERS: ATTEND Nurse Practitioner
DX: Z13.220 Encounter for screening for lipoid disorders (principal); R53.82 Chronic fatigue, unspecified; K21.9 Gastro-esophageal reflux disease without esophagitis; R73.09 Other abnormal glucose
CPT/HCPCS: 36415; 80053; 80061; 83036; 84443; 85025